=== PATIENT | male | born 1935 | race African-American/Black ===

== ENCOUNTER 2018-06-10 10:14 | Inpatient (IN) | payer MEDICARE, OTHER ==
--- NOTE | ~2018-06-10 | PN ---
PATIENT:CELESTINA CHEEMA MEDICAL RECORD: [id number] LOCATION:[facility] ADMISSION DATE: 06/10/18 PROGRESS NOTE DATE OF SERVICE: 06/26/2018 SUBJECTIVE: The patient's case was discussed with staff. He has no new complaint. OBJECTIVE: The patient does not appear over-sedated today. He is tolerating his medicines reasonably well. He has pretty limited insight. ASSESSMENT: No change in diagnoses. PLAN: The patient will be transitioned out of the hospital soon if this level of improvement is maintained. His long-term prognosis is guarded. TRANSINT:[id number] Voice Confirmation ID: [id number] DOCUMENT ID: [id number] JORJE SOTOMAYOR MD at 1053 CC: [id number] DICTATION DATE: 06/26/18 1448 ELECTROCARDIOGRAPH TECHNICIAN: 06/26/18 1519 ADM IN [facility] [address] [id number]
--- NOTE | ~2018-06-10 | PN ---
PATIENT:CELESTINA CHEEMA MEDICAL RECORD: [id number] LOCATION:[facility]113 ADMISSION DATE: 06/10/18 PROGRESS NOTE DATE OF SERVICE: 06/25/2018 SUBJECTIVE: The patient's case was discussed with staff. He has no new complaint. OBJECTIVE: The patient is in good behavioral control with limited insight about his condition. He does tolerate his medicines well. He was agitated about 4 o'clock this morning and received p.r.n. medication. I do not think he has had enough doses of the Abilify to determine if he is going to tolerate that well or not. He continues to intermittently be extremely abusive and verbally aggressive toward others. TRANSINT:[id number] Voice Confirmation ID: [id number] DOCUMENT ID: [id number] JORJE SOTOMAYOR MD at 1301 CC: [id number] DICTATION DATE: 06/25/18 1503 LABORER COOK HOUSE: 06/25/18 1520 ADM IN [id number] [place] [address]
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
--- NOTE | ~2018-06-10 | PN ---
PATIENT:CELESTINA CHEEMA MEDICAL RECORD: [id number] LOCATION:[facility]awaSivakumar112 ADMISSION DATE: 06/10/18 PROGRESS NOTE DATE OF SERVICE: 06/12/2018 SUBJECTIVE: The patient's case was discussed with staff. He has no new complaint. OBJECTIVE: The patient is paranoid and withdrawn. He is very isolative. When asked about paranoia, he denies it, but he has been observed by myself and other staff members and is indeed quite psychotic. He has not been openly aggressive. ASSESSMENT: No change in diagnoses. PLAN: The patient was just started yesterday on Zyprexa at a dose of 5 mg at bedtime. I am virtually certain he is going to need a higher dose, but I will wait another day before I increase it. His long-term prognosis is guarded. TRANSINT:[id number] Voice Confirmation ID: [id number] DOCUMENT ID: [id number] JORJE SOTOMAYOR MD at 1329 CC: [id number] DICTATION DATE: 06/12/18 1331 OUTBOUND SALES PROFESSIONAL: 06/12/18 1346 ADM IN [facility] [address] [place] [address]
--- NOTE | ~2018-06-10 | PN ---
PATIENT:CELESTINA CHEEMA MEDICAL RECORD: [id number] LOCATION:[facility]113 ADMISSION DATE: 06/10/18 PROGRESS NOTE DATE OF SERVICE: 06/27/2018 SUBJECTIVE: The patient's case was discussed with staff. He has no new complaint. OBJECTIVE: The patient is awake, alert and not angry or verbally abusive. He did sleep well last night and he ate reasonably well. He does have a therapeutic Depakote level. I consider him to have significantly improved. ASSESSMENT: No change in diagnoses. PLAN: The patient will be transitioned back to the senior care tomorrow. His long-term prognosis is guarded. TRANSINT:[id number] Voice Confirmation ID: [id number] DOCUMENT ID: [id number] JORJE SOTOMAYOR MD at 1322 CC: [id number] DICTATION DATE: 06/27/18 1212 WHARF TALLY CLERK: 06/27/18 1224 DIS IN 06/28/18 [id number] [place] [address]
--- NOTE | ~2018-06-10 | PN ---
PATIENT:CELESTINA CHEEMA MEDICAL RECORD: [id number] LOCATION:[facility] BajwaSivakumar113 ADMISSION DATE: 06/10/18 PROGRESS NOTE DATE OF SERVICE: 06/24/2018 SUBJECTIVE: The patient's case was discussed with staff. He has no new complaint. OBJECTIVE: The patient is in good behavioral control with limited insight about his condition. He does tolerate his medicines well. He has been less irritable, although last night, he did require p.r.n. medication for verbally abusive agitation. PLAN: He will be monitored for clinical changes. His long-term prognosis is guarded. TRANSINT:[id number] Voice Confirmation ID: [id number] DOCUMENT ID: [id number] JROJE SOTOMAYOR MD at 1434 CC: [id number] DICTATION DATE: 06/24/18 1551 BIOMEDICAL EQUIPMENT SUPPORT SPECIALIST: 06/24/18 1638 ADM IN [address] [address] [place] [id number]
--- NOTE | ~2018-06-10 | PN ---
PATIENT:CELESTINA CHEEMA MEDICAL RECORD: [id number] LOCATION:[facility] Arthur ADMISSION DATE: 06/10/18 PROGRESS NOTE DATE OF SERVICE: 06/23/2018 SUBJECTIVE: The patient's case was discussed with staff. He has no new complaint. OBJECTIVE: The patient denies intent to harm himself or others. He is very irritable and inappropriate. He is using numerous racial slurs toward other patients and staff. ASSESSMENT: No change in diagnoses. The patient is much more awake. His demeanor is certainly inappropriate. I think it is related to dementia and I am going to treat him with a low dose of Abilify. He will be monitored for clinical changes associated with the medication. His long-term prognosis is guarded. TRANSINT:[id number] Voice Confirmation ID: [id number] DOCUMENT ID: [id number] JORJE SOTOMAYOR MD at 1459 CC: [id number] DICTATION DATE: 06/23/18 1138 ORTHOTICS ASSISTANT: 06/23/18 1619 ADM IN [facility] [address] [place] [address]
--- NOTE | ~2018-06-10 | PN ---
PATIENT:CELESTINA CHEEMA MEDICAL RECORD: [id number] LOCATION:[facility] GonzalezSona ADMISSION DATE: 06/10/18 PROGRESS NOTE DATE OF SERVICE: 06/20/2018 SUBJECTIVE: The patient's case was discussed with staff. He has no new complaint. OBJECTIVE: The patient is in good behavioral control, but earlier today was very angry and cursing at staff and using racial slurs. When asked about this, he becomes angry. ASSESSMENT: No change in diagnoses. PLAN: Supportive and educational interventions were made. Long-term prognosis is guarded. I am going to start him on Seroquel at a dose of 25 mg twice daily for his thought disorganization. TRANSINT:[id number] Voice Confirmation ID: [id number] DOCUMENT ID: [id number] JORJE SOTOMAYOR MD at 1350 CC: [id number] DICTATION DATE: 06/20/18 1338 GAS ENGINE OPERATOR: 06/20/18 1348 ADM IN [address] [place] [address]
--- NOTE | ~2018-06-10 | PN ---
PATIENT:CELESTINA CHEEMA MEDICAL RECORD: [id number] LOCATION:PIP[facility]112 ADMISSION DATE: 06/10/18 PROGRESS NOTE DATE OF SERVICE: 06/19/2018 SUBJECTIVE: The patient's case was discussed with staff. He has no new complaint. OBJECTIVE: The patient is in good behavioral control with limited insight about his condition. He does tolerate his medicines well. ASSESSMENT: No change in diagnoses. PLAN: Current medicines and therapies have been reviewed, both will be maintained. Long-term prognosis is guarded. I anticipate the patient can be transitioned out of the hospital soon if this level of improvement is maintained. TRANSINT:[id number] Voice Confirmation ID: [id number] DOCUMENT ID: [id number] JORJE SOTOMAYOR MD at 1323 CC: [id number] DICTATION DATE: 06/19/18 1215 OPERATING COST CLERK: 06/19/18 1238 ADM IN [facility] [address] [place] [address]
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
--- NOTE | ~2018-06-10 | PN ---
PATIENT:CELESTINA CHEEMA MEDICAL RECORD: [id number] LOCATION:[facility] BajwaSiv[facility]umar112 ADMISSION DATE: 06/10/18 PROGRESS NOTE DATE OF SERVICE: 06/17/2018 SUBJECTIVE: The patient's case was discussed with staff. He has no new complaint. OBJECTIVE: The patient is in better behavioral control. He, at least today, has not used any of the racial slurs toward the staff. ASSESSMENT: No change in diagnoses. PLAN: The patient will have his Namenda increased to 5 mg twice daily. His long-term prognosis is guarded. I do anticipate he can be returned to the group home soon if this level of improvement is maintained. TRANSINT:[id number] Voice Confirmation ID: [id number] DOCUMENT ID: [id number] JORJE SOTOMAYOR MD at 1406 CC: [id number] DICTATION DATE: 06/17/18 1413 NET APPLICATIONS DEVELOPER: 06/17/18 1530 ADM IN [id number] [place] [address]
--- NOTE | ~2018-06-10 | PN ---
PATIENT:CELESTINA CHEEMA MEDICAL RECORD: [id number] LOCATION:AydeeSivakumarJUWAN [facility]112 ADMISSION DATE: 06/10/18 PROGRESS NOTE DATE OF SERVICE: 06/16/2018 SUBJECTIVE: The patient's case was discussed with staff. He has no new complaint. OBJECTIVE: The patient denies intent to harm himself or others. He generally tolerates his medicines well. ASSESSMENT: No change in diagnoses. PLAN: The patient has been somewhat verbally abusive to the staff, but he has not made overt threats to harm anyone. The level of abuse though is such that I do not think he could be managed in a long-term care setting since the vulgar and racial terms he is using are not likely to be tolerated outside of a behavioral unit. I have spoken with him about this and he denies that he has been doing it. I will maintain current medications and we will monitor his progress. TRANSINT:[id number] Voice Confirmation ID: [id number] DOCUMENT ID: [id number] JORJE SOTOMAYOR MD at 1333 CC: [id number] DICTATION DATE: 06/16/18 1114 TACK CUTTER: 06/16/[address] [facility] [address] [id number]
--- NOTE | ~2018-06-10 | PN ---
PATIENT:CELESTINA CHEEMA MEDICAL RECORD: [id number] LOCATION:[facility] Gonzalez112 ADMISSION DATE: 06/10/18 PROGRESS NOTE DATE OF SERVICE: 06/22/2018 SUBJECTIVE: The patient's case was discussed with staff. He has no new complaint. OBJECTIVE: The patient denies intent to harm himself or others. He generally tolerates his medicines well. He is still a little sedated, but much better than yesterday. The amount of Seroquel he received was modest, yet it had a very powerful effect upon him. Hopefully, I can avoid another antipsychotic; however, if he becomes delusional, agitated, and abusive, it may well be necessary to start another medication. TRANSINT:[id number] Voice Confirmation ID: [id number] DOCUMENT ID: [id number] JORJE SOTOMAYOR MD at 1118 CC: [id number] DICTATION DATE: 06/22/18 1147 PHOTONICS ENGINEERING TECHNICIAN: 06/22/18 1341 ADM IN [id number] [place] [address]
--- NOTE | ~2018-06-10 | PN ---
PATIENT:CELESTINA CHEEMA MEDICAL RECORD: [id number] LOCATION:[facility] Hart ADMISSION DATE: 06/10/18 PROGRESS NOTE DATE OF SERVICE: 06/15/2018 SUBJECTIVE: The patient's case was discussed with staff. He has no new complaint. OBJECTIVE: The patient is eating reasonably well and he is sleeping reasonably well. He has not been aggressive, but he continues to be fairly irritable and unpleasant. I suspect the improvement in his aggression is related to the skill with which trained psychiatric nurses are interacting with him and not related to some improvement in his underlying condition. He, on the other hand, does seem less paranoid and hypervigilant, which is somewhat curious since he is not receiving an antipsychotic at this time. Another curiosity is how his Depakote level could go from therapeutic to subtherapeutic when his dose of medication was not changed. I am suspicious that if there is paranoia, he may be cheeking his medications or at least some of them. I will speak with him about this and ask the nursing staff to be more vigilant and observing him swallow and clear his mouth when he takes medication. They generally do that already, but at this point, I do not have an explanation as to why his Depakote level would be so different just a few days apart. ASSESSMENT: No change in diagnoses. PLAN: As described above, the patient will be monitored and observed. TRANSINT:[id number] Voice Confirmation ID: [id number] DOCUMENT ID: [id number] JORJE SOTOMAYOR MD at 1040 CC: [id number] DICTATION DATE: 06/15/18 1036 SOAP PRESS FEEDER: 06/15/18 1101 ADM IN [facility] [address] [place] [address]
--- NOTE | ~2018-06-10 | PN ---
PATIENT:CELESTINA CHEEMA MEDICAL RECORD: [id number] LOCATION:LisaJUWAN Gonzalez112 ADMISSION DATE: 06/10/18 PROGRESS NOTE DATE OF SERVICE: 06/18/2018 SUBJECTIVE: The patient's case was discussed with staff. He has no new complaint. OBJECTIVE: The patient is in poor behavioral control. He has very limited insight about his condition. He tolerates his medicines well. He is not sleeping very well, but he does tend to catnap through the day. ASSESSMENT: No change in diagnoses. PLAN: I have ordered a Depakote level for the patient and we will maintain current medicines, which I have reviewed. If this level of improvement is maintained, I anticipate he can be discharged soon. TRANSINT:[id number] Voice Confirmation ID: [id number] DOCUMENT ID: [id number] JORJE SOTOMAYOR MD at 1203 CC: [id number] DICTATION DATE: 06/18/18 1452 TECHNICAL AID: 06/18/18 1559 ADM IN [id number] [place] [address]
--- NOTE | ~2018-06-10 | PN ---
PATIENT:CELESTINA CHEEMA MEDICAL RECORD: [id number] LOCATION:[facility] Gonzalez112 ADMISSION DATE: 06/10/18 PROGRESS NOTE DATE OF SERVICE: 06/14/2018 SUBJECTIVE: The patient's case was discussed with staff. He has no new complaint. OBJECTIVE: The patient is sleepy but arousable. He is confused to begin with, but it is probably a little worse this afternoon because he seems sleepy. He only received Zyprexa at a dose of 5 mg at bedtime, so I am not sure if that is the problem. He is also taking Depakote, which had a therapeutic blood level a few days ago. ASSESSMENT: No change in diagnoses. PLAN: The patient looks sleepy as mentioned above, so I am going to stop the Zyprexa. It is the newest medication that has been started and I am going to check a Depakote level. His long-term prognosis is guarded. He will be reevaluated tomorrow. TRANSINT:[id number] Voice Confirmation ID: [id number] DOCUMENT ID: [id number] JORJE SOTOMAYOR MD at 1014 CC: [id number] DICTATION DATE: 06/14/18 1728 LIBRARY CONSULTANT: 06/14/18 1803 ADM IN [address] [place] [address]
--- NOTE | ~2018-06-10 | PN ---
PATIENT:CELESTINA CHEEMA MEDICAL RECORD: [id number] LOCATION:[facility] BajwaSivakumar112 ADMISSION DATE: 06/10/18 PROGRESS NOTE DATE OF SERVICE: 06/21/2018 SUBJECTIVE: The patient's case was discussed with staff. He has no new complaint. OBJECTIVE: The patient denies intent to harm himself or others, but is very sleepy and is having difficulty maintaining arousal. ASSESSMENT: No change in diagnoses. PLAN: The patient is very sleepy compared to yesterday. It must be the Seroquel that he has been started on. I am going to discontinue it. I am also going to check a Depakote level, which has been therapeutic, but just to make sure it has not for some mysterious reason climbed into the toxic range. TRANSINT:[id number] Voice Confirmation ID: [id number] DOCUMENT ID: [id number] JORJE SOTOMAYOR MD at 1129 CC: [id number] DICTATION DATE: 06/21/18 1417 MANAGER MOBILE: 06/21/18 1424 ADM IN [id number] [place] [id number]
--- NOTE | ~2018-06-10 | PN ---
PATIENT:CELESTINA CHEEMA MEDICAL RECORD: [id number] LOCATION:T[facility] Gonzalez112 ADMISSION DATE: 06/10/18 PROGRESS NOTE DATE OF SERVICE: 06/13/2018 SUBJECTIVE: The patient's case was discussed with staff. He has no new complaint. OBJECTIVE: The patient is in good behavioral control with limited insight about his condition. He appears to be paranoid and hypervigilant. He has not been yelling anymore, which is certainly encouraging. He certainly is sleeping an adequate amount. ASSESSMENT: No change in diagnoses. PLAN: The patient will have his trazodone discontinued secondary to an absence of clinical indication. He also will be started on Namenda for its memory enhancing properties. I am encouraged by the improvement, but still do not think he is appropriate for management in a [facility] based on his level of psychosis and paranoia. TRANSINT:[id number] Voice Confirmation ID: [id number] DOCUMENT ID: [id number] JORJE SOTOMAYOR MD at 1710 CC: [id number] DICTATION DATE: 06/13/18 1403 CONTROL CABINET ASSEMBLER: 06/13/18 1408 ADM IN [facility] [address] [place] [address]
[2018-06-10] MEDS ORDERED: ATIVAN0.5 MG (10:34)
[2018-06-10] MEDS ORDERED: NORVASC2.5 MG PO (10:34)
[2018-06-10] MEDS ORDERED: BENZTROPINE ME0.5 MG PO (10:35)
[2018-06-10] MEDS ORDERED: DEPAKOTE SPRIN125 MG PO (10:35)
[2018-06-10] MEDS ORDERED: EUCERIN CREAM120 GM TOPICAL (10:35)
[2018-06-10] MEDS ORDERED: CHRONULAC30 ML PO (10:40)
[2018-06-10] MEDS ORDERED: FUROSEMIDE20 MG PO (10:40)
[2018-06-10] MEDS ORDERED: INVEGA6 MG/BLIST PO (10:40)
[2018-06-10] MEDS ORDERED: LISINOPRIL2.5 MG PO (10:41)
[2018-06-10] MEDS ORDERED: TOPROL XL25 MG PO (10:41)
[2018-06-10 12:01] LABS: BASOPHILS 0.2 % (0-2); EOSINOPHILS 3.3 % (0-7); HEMATOCRIT 34.6 % (42.0-54.0); HEMOGLOBIN 11.3 g/dL (13.5-17.5); IMMATURE GRANULOCYTES 0.4 % (0-5); LYMPHOCYTES 27.3 % (15-50); MCH 26.8 pg (26.0-34.0); MCHC 32.7 g/dL (31.0-37.0); MCV 82.2 fL (80.0-100.0); MEAN PLATELET VOLUME 10.2 fL (7.4-10.4); NEUTROPHILS 55.8 % (40-80); PLATELET COUNT 180 10x3/uL (130-400); RBC 4.21 10x6/uL (4.20-6.10); RDW 15.7 % (11.5-14.5); WBC 4.8 10x3/uL (4.8-10.8)
[2018-06-10 12:48] LABS: ALKALINE PHOSPHATASE 68 U/L (46-116); ALT (SGPT) 21 U/L (10-68); BILIRUBIN - TOTAL 0.27 mg/dL (0.2-1.3); CALC OSMOLALITY 275 mosm/kg (275-300); CALCIUM 8.4 mg/dL (8.5-10.1); CARBON DIOXIDE 28.1 mmol/L (21.0-32.0); CHLORIDE - SERUM 100 mmol/L (98-107); CREATININE - SERUM 0.9 mg/dL (0.6-1.3); GLUCOSE 82 mg/dL (74-106); POTASSIUM - SERUM 4.2 mmol/L (3.5-5.1); PROTEIN - SERUM 7.2 g/dL (6.4-8.2); SODIUM 138 mmol/L (136-145); UREA NITROGEN 14 mg/dL (7-18); eGFR NON AFRICAN AMERICAN 86 mL/min (90-120)
[2018-06-10 19:07] LABS: APPEARANCE CLEAR (CLEAR); BILIRUBIN NEGATIVE (NEGATIVE); COLOR YELLOW (YELLOW); GLUCOSE NEGATIVE (NEGATIVE); KETONE NEGATIVE (NEGATIVE); NITRITE NEGATIVE (NEGATIVE); PROTEIN NEGATIVE (NEGATIVE); UROBILINOGEN NORMAL (NORMAL)
[2018-06-10 19:36] VITALS: BP 136/59
[2018-06-10] MEDS ORDERED: K-DUR20 MEQ PO (19:41)
[2018-06-10] MEDS ORDERED: ACETAMINOPHEN500 M1 PO (19:42)
[2018-06-10] MEDS ORDERED: TRAZODONE HCL50 MG PO (19:42)
[2018-06-11 07:00] VITALS: BP 137/80
[2018-06-11 08:08] LABS: CHOL - HDL RATIO 2.1 ratio (2.3-4.9); THYROID STIMULATING HORMONE 3.53 uIU/mL (0.36-3.74); VALPROIC ACID (DEPAKOTE) 58.7 ug/mL (50.0-100.0)
[2018-06-11 11:25] VITALS: BMI 20.4
[2018-06-11 13:47] VITALS: Wt 68.0 kg
[2018-06-11 19:41] VITALS: BP 117/76
[2018-06-12 01:08] LABS: UDS - AMPHET NEGATIVE QUAL (NEGATIVE); UDS - BARB NEGATIVE QUAL (NEGATIVE); UDS - BENZO NEGATIVE QUAL (NEGATIVE); UDS - COCAINE NEGATIVE QUAL (NEGATIVE); UDS - OPIATE NEGATIVE QUAL (NEGATIVE); UDS - PCP NEGATIVE QUAL (NEGATIVE); UDS - THC NEGATIVE QUAL (NEGATIVE)
[2018-06-12 07:32] LABS: RAPID PLASMA REAGIN Non Reactive (Non Reactive)
[2018-06-12 09:22] LABS: FOLATE (FOLIC ACID) - SERUM 11.1 ng/mL (>3.0)
[2018-06-12 10:20] LABS: VITAMIN D 25 HYDROXY 27.8 ng/mL (30.0-100.0)
[2018-06-12 10:22] VITALS: BP 112/74
[2018-06-12 20:15] VITALS: BP 124/67
[2018-06-13 09:00] VITALS: BP 132/78
[2018-06-13 19:23] VITALS: BP 112/74
[2018-06-14 09:14] VITALS: BP 147/77
[2018-06-14 20:28] VITALS: BP 133/68
[2018-06-15 07:58] VITALS: BP 110/58
[2018-06-15 10:12] VITALS: BP 110/58
[2018-06-15 14:51] LABS: ALBUMIN 2.9 g/dL (3.4-5.0); ALKALINE PHOSPHATASE 70 U/L (46-116); ALT (SGPT) 21 U/L (10-68); CALC OSMOLALITY 280 mosm/kg (275-300); CALCIUM 8.3 mg/dL (8.5-10.1); CARBON DIOXIDE 31.1 mmol/L (21.0-32.0); CHLORIDE - SERUM 103 mmol/L (98-107); CREATININE - SERUM 0.9 mg/dL (0.6-1.3); GLUCOSE 110 mg/dL (74-106); POTASSIUM - SERUM 3.9 mmol/L (3.5-5.1); PROTEIN - SERUM 7.6 g/dL (6.4-8.2); SODIUM 140 mmol/L (136-145); UREA NITROGEN 14 mg/dL (7-18); eGFR NON AFRICAN AMERICAN 86 mL/min (90-120)
[2018-06-15 14:55] LABS: BASOPHILS 0.2 % (0-2); EOSINOPHILS 3.6 % (0-7); HEMATOCRIT 35.8 % (42.0-54.0); HEMOGLOBIN 11.7 g/dL (13.5-17.5); IMMATURE GRANULOCYTES 0.3 % (0-5); LYMPHOCYTES 18.9 % (15-50); MCHC 32.7 g/dL (31.0-37.0); MCV 82.5 fL (80.0-100.0); MEAN PLATELET VOLUME 9.5 fL (7.4-10.4); MONOCYTES 18.6 % (2-11); NEUTROPHILS 58.4 % (40-80); PLATELET COUNT 170 10x3/uL (130-400); RBC 4.34 10x6/uL (4.20-6.10); RDW 15.8 % (11.5-14.5); WBC 5.9 10x3/uL (4.8-10.8)
[2018-06-15 20:39] VITALS: BP 124/61
[2018-06-16 07:00] VITALS: BP 148/61
[2018-06-16 20:05] VITALS: BP 122/68
[2018-06-17 07:00] VITALS: BP 136/75
[2018-06-17 19:25] VITALS: BP 94/50
[2018-06-18 08:49] VITALS: BP 120/67
[2018-06-18 21:22] VITALS: BP 109/65
[2018-06-19 08:05] VITALS: BP 171/74
[2018-06-19 20:55] VITALS: BP 172/83
[2018-06-20 10:40] LABS: CALC OSMOLALITY 275 mosm/kg (275-300); CALCIUM 8.7 mg/dL (8.5-10.1); CARBON DIOXIDE 26.7 mmol/L (21.0-32.0); CHLORIDE - SERUM 103 mmol/L (98-107); CREATININE - SERUM 0.9 mg/dL (0.6-1.3); GLUCOSE 139 mg/dL (74-106); SODIUM 136 mmol/L (136-145); UREA NITROGEN 19 mg/dL (7-18); eGFR NON AFRICAN AMERICAN 86 mL/min (90-120)
[2018-06-20 11:03] VITALS: BP 160/121
[2018-06-20 20:05] VITALS: BP 100/56
[2018-06-21 10:31] VITALS: BP 137/78
[2018-06-21 20:35] VITALS: BP 105/68
[2018-06-22 09:37] VITALS: BP 116/72
[2018-06-22 19:21] VITALS: BP 109/64
[2018-06-23 08:00] VITALS: BP 143/62
[2018-06-23 19:25] VITALS: BP 104/63
[2018-06-24 09:47] VITALS: BP 123/68
[2018-06-24 19:34] VITALS: BP 99/55
[2018-06-25 08:00] VITALS: BP 126/53
[2018-06-25 22:24] VITALS: BP 113/60
[2018-06-26 09:00] VITALS: BP 133/66
[2018-06-26 19:06] VITALS: BP 101/60
[2018-06-27 10:35] VITALS: BP 134/63
[2018-06-27 22:38] VITALS: BP 150/74
[2018-06-28] MEDS ORDERED: NAMENDA5 MG PO (09:29)
[2018-06-28] MEDS ORDERED: VOLTAREN100 GM TOPICAL (09:30)
[2018-06-28] MEDS ORDERED: ACETAMINOPHEN500 M1 PO (09:30)
[2018-06-28] MEDS ORDERED: ABILIFY2 MG PO (09:31)
[2018-06-28] MEDS ORDERED: LASIX20 MG PO (09:31)
[2018-06-28] MEDS ORDERED: LINZESS145 MCG PO (09:31)
[2018-06-28] MEDS ORDERED: VITAMIN D31000 UNI2 PO (09:32)
[2018-07-03] MEDS ORDERED: VIBRAMYCIN 100100 MG PO (18:07)
== END 2018-06-28 11:12 | DRG 885 ==
LOC: D.ER 10:14 → D.PSYCH 16:36 → D.EDHOLD 16:36 → D.PSYCH 17:20
PROVIDERS: Family Medicine; Psychiatry & Neurology Psychiatry
DX: F20.0 Paranoid schizophrenia (principal); B20 Human immunodeficiency virus [HIV] disease; L03.221 Cellulitis of neck; G30.1 Alzheimer's disease with late onset; F02.80 Dementia in other diseases classified elsewhere, unspecified severity, without behavioral disturbance, psychotic disturbance, mood disturbance, and anxiety; E55.9 Vitamin D deficiency, unspecified; I10 Essential (primary) hypertension; K59.09 Other constipation; J30.9 Allergic rhinitis, unspecified; S43.001A Unspecified subluxation of right shoulder joint, initial encounter; X58.XXXA Exposure to other specified factors, initial encounter

== ENCOUNTER 2018-07-04 11:10 | Inpatient (IN) | payer MEDICARE ==
[~2018-07-04] VITALS: Ht 180.3 cm; Wt 69.6 kg
--- NOTE | ~2018-07-04 | PSY ---
PATIENT NAME:CELESTINA CHEEMA MEDICAL RECORD: [id number] : 39 LOCATION:[facility]4 ADMISSION DATE: 07/04/18 ACCOUNT: [id number] PSYCHIATRIC EVALUATION DATE OF EVALUATION: 07/05/18 IDENTIFYING DATA: The patient is 83 years old and he is admitted to the hospital on a voluntary basis. CHIEF COMPLAINT: Aggression. HISTORY OF PRESENT ILLNESS: The patient lives in a local [facility] and he has been aggressive, threatening and abusive to the staff and other patients. The patient has no recollection of this. He was actually discharged from here about a week ago and at that time after a difficult hospitalization, he was stable. He was discharged on a Sunday and even though there were discharge instructions, the usp called on Sunday and wanted to know what medicines he was supposed to be on. This leads me to believe that he had not had medications for several days or at least not had all of his medicines for several days. The patient has no recollection of the events that transpired. He is angry, he is verbally abusive, and makes some very inappropriate statements. PAST MEDICAL HISTORY: Significant for an HIV infection, which has been present for some time. He also has a history of hypertension. He denies being a homosexual and using intravenous drugs, so I am not sure how he contracted the disease. PAST PSYCHIATRIC HISTORY: Significant for a longstanding diagnosis of schizophrenia. The patient was actually discharged from the [employer] for mental health reasons and has had numerous psychiatric hospitalizations since then. FAMILY HISTORY: Unknown. ALLERGIES: SULFA and IODINE. CURRENT MEDICATIONS: Please see the admissions MAR. SOCIAL HISTORY: The patient is single. He has never been and has no children. He has never functioned well socially or occupationally. He has been mentally ill all of his adult life. He denies a history of drug or alcohol abuse as well as legal entanglements, but again he is an unreliable historian. He has a sister who lives in [place] and she is actually the one who brought him here from [place], so that she could care for him, but after she was unable to manage him in her home, she placed him in a usp. MENTAL STATUS EXAMINATION: The patient is awake, alert and oriented to person, place and somewhat to time and situation. His mood is flat. His affect is generally appropriate. Thought processes are disorganized with impairment of his memory, concentration, and abstraction abilities. He denies that he would seek to harm himself or others. He denies psychotic symptoms. ASSETS: Supportive family members. LIABILITIES: Limited insight. DIAGNOSTIC IMPRESSION: AXIS I: 1. 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 AXIS II: Deferred. AXIS III: HIV infection and hypertension. AXIS IV: Moderate stressors. AXIS V: Global assessment of functioning is 30. PLAN: At this time, the patient is admitted to the hospital for a comprehensive medical, psychological, and social evaluation. He will be treated with both mood stabilizing and memory enhancing medications. His long-term prognosis is guarded. TRANSINT:[id number] Voice Confirmation ID: [id number] DOCUMENT ID: [id number] JORJE SOTOMAYOR MD at 1243 CC: [id number] DICTATION DATE: 07/05/18 1251 SECURITY SHIFT SUPERVISOR: 07/05/18 1301 [facility] IN [facility] [address] [id number]
--- NOTE | ~2018-07-04 | PN ---
PATIENT:CELESTINA CHEEMA MEDICAL RECORD: [id number] LOCATION:[facility]112 ADMISSION DATE: 07/04/18 PROGRESS NOTE DATE OF SERVICE: 07/08/2018 SUBJECTIVE: The patient's case was discussed with staff. He has no new complaint. OBJECTIVE: The patient denies intent to harm himself or others. He does appear to be a little sedated. He has not had p.r.n. medication today. We had no further disruptive behaviors. I am going to check a Depakote level to make sure that the dose has not gradually risen on him, but if that is in therapeutic range, I think there is probably not very much more that can be done with him other than helping with placing him in an environment that meets his needs, but is the least restrictive possible. TRANSINT:[id number] Voice Confirmation ID: [id number] DOCUMENT ID: [id number] JORJE SOTOMAYOR MD at 1329 CC: [id number] DICTATION DATE: 07/08/18 1436 FIRST AID ATTENDANT: 07/08/18 1441 ADM IN [facility] [address] [place] [address]
--- NOTE | ~2018-07-04 | PN ---
PATIENT:CELESTINA CHEEMA MEDICAL RECORD: [id number] LOCATION:[facility]112 ADMISSION DATE: 07/04/18 PROGRESS NOTE DATE OF SERVICE: 07/09/2018 SUBJECTIVE: The patient's case was discussed with staff. He has no new complaint. OBJECTIVE: The patient is somewhat sedated. He is arousable and reasonably cooperative. ASSESSMENT: No change in diagnoses. PLAN: The patient received p.r.n. medication last night for some agitation. This was unfortunate of course, but I think that a possible solution or partial solution has been found. It seems that the patient is often refusing medications or intermittently refusing them, but he will consistently take them if they are crushed and put in chocolate pudding. I have asked the nursing staff to do this with all of his medications and this practice should be followed at the [facility] upon discharge. TRANSINT:[id number] Voice Confirmation ID: [id number] DOCUMENT ID: [id number] JORJE SOTOMAYOR MD at 1234 CC: [id number] DICTATION DATE: 07/09/181908 SAP PROJECT MANAGER: 07/09/181941 ADM IN [facility] [address] [place] [address]
--- NOTE | ~2018-07-04 | PN ---
PATIENT:CELESTINA CHEEMA MEDICAL RECORD: [id number] LOCATION:[facility]ona ADMISSION DATE: 07/04/18 PROGRESS NOTE DATE OF SERVICE: 07/11/2018 SUBJECTIVE: The patient's case was discussed with staff. He has no new complaint. OBJECTIVE: The patient is in good behavioral control with limited insight about his condition. He does tolerate his medicines well. Unfortunately, he was agitated yesterday. He is calmer today. I do not know if this was an isolated event, it was once again racially motivated. ASSESSMENT: No change in diagnoses. PLAN: I do intend to treat the patient with current medicines. I will check a Depakote level. He does have a history of being very sensitive to medications. TRANSINT:[id number] Voice Confirmation ID: [id number] DOCUMENT ID: [id number] JORJE SOTOMAYOR MD at 1435 CC: [id number] DICTATION DATE: 07/11/18 1359 SHOESHINER: 07/11/18 1412 ADM IN [place] [id number] [place] [id number]
--- NOTE | ~2018-07-04 | PN ---
PATIENT:CELESTINA CHEEMA MEDICAL RECORD: [id number] LOCATION:[facility]112 ADMISSION DATE: 07/04/18 PROGRESS NOTE DATE OF SERVICE: 07/13/2018 SUBJECTIVE: The patient's case was discussed with staff. He has no new complaint. OBJECTIVE: The patient is in good behavioral control with limited insight about his condition. He does tolerate his medicines well. Eye contact is fair. ASSESSMENT: No change in diagnoses. PLAN: The patient has been very angry, but not today. I have reviewed his medicines and I am going to ask for a Depakote level. He looks sleepy, but was easily aroused. I am told he has been more awake through the day by the staff that spends the day with him in the day room. His next of kin who happens to be a sister does not want him transferred to a more restrictive area or senior living, which is of course fine, but it may be a real challenge to bring his behaviors under control such that he can be handled in a senior living here in [place]. TRANSINT:[id number] Voice Confirmation ID: [id number] DOCUMENT ID: [id number] JORJE SOTOMAYOR MD at 1210 CC: [id number] DICTATION DATE: 07/13/18 1236 MOTEL OPERATOR: 07/13/18 1253 ADM IN [address] [id number] [place] [address]
--- NOTE | ~2018-07-04 | PN ---
PATIENT:CELESTINA CHEEMA MEDICAL RECORD: [id number] LOCATION:[facility]112 ADMISSION DATE: 07/04/18 PROGRESS NOTE DATE OF SERVICE: 07/12/2018 SUBJECTIVE: The patient's case was discussed with staff. He has no new complaint. OBJECTIVE: The patient denies intent to harm himself or others. He is slightly sedated, but nursing staff in the day room with him at this time indicate that he has been awake and active through the morning, so I may have just caught him at a bad time. He has pretty limited insight about his condition. He is actually polite when he speaks to me. I am going to go ahead and check another Depakote level. He had a nicely therapeutic level 4 days ago, but I want to see if is stable. TRANSINT:[id number] Voice Confirmation ID: [id number] DOCUMENT ID: [id number] JORJE SOTOMAYOR MD at 1213 CC: [id number] DICTATION DATE: 07/12/18 1505 STABILIZING MACHINE OPERATOR: 07/12/18 1514 ADM IN [facility] [address] [place] [address]
--- NOTE | ~2018-07-04 | PN ---
PATIENT:CELESTINA CHEEMA MEDICAL RECORD: [id number] LOCATION:[facility]112 ADMISSION DATE: 07/04/18 PROGRESS NOTE DATE OF SERVICE: 07/06/2018 SUBJECTIVE: The patient's case was discussed with staff. He has no new complaint. OBJECTIVE: The patient seems a little sleepy, but I am not sure if that is related to some p.r.n. medicine he had a couple of days ago or his scheduled medicines. I think it is probably the p.r.n.'s that are causing a lingering sedation because when he was previously discharged from here he was taking the same medications and was tolerating them well. ASSESSMENT: No change in diagnoses. PLAN: The patient has not been aggressive today. He has some paranoid thoughts, but they are mild compared to what I have seen with him previously. I think his long-term prognosis is guarded. TRANSINT:[id number] Voice Confirmation ID: [id number] DOCUMENT ID: [id number] JORJE SOTOMAYOR MD at 1326 CC: [id number] DICTATION DATE: 07/06/18 1302 WOODWORKER HELPER: 07/06/18 1340 ADM IN [place] [id number] [place] [address]
--- NOTE | ~2018-07-04 | PN ---
PATIENT:CELESTINA CHEEMA MEDICAL RECORD: [id number] LOCATION:[facility]112 ADMISSION DATE: 07/04/18 PROGRESS NOTE DATE OF SERVICE: 07/15/2018 SUBJECTIVE: The patient's case was discussed with staff. He has no new complaint. OBJECTIVE: The patient is in good behavioral control, although he can still be irritable at times. ASSESSMENT: No change in diagnoses. PLAN: The patient is going to be transitioned out of the hospital tomorrow. His long-term prognosis is guarded. He continues to have ongoing verbal outbursts that are racial in nature. I do not think there is anything that can really be done about this. We have discussed with his sister, who is his next of kin, about sending him to a custodial in a community where perhaps they were more -Americans and he would feel more comfortable, but she would like for him to stay locally if possible. She indicated she would be fine with him just being sedated if he could stay locally, but that is obviously completely unacceptable and we will just manage him best we can and see if this improvement is going to last. TRANSINT:[id number] Voice Confirmation ID: [id number] DOCUMENT ID: [id number] JORJE SOTOMAYOR MD at 1132 CC: [id number] DICTATION DATE: 07/15/18 1425 LIME SPREADER: 07/15/18 [address] [facility] [address] [place] [address]
--- NOTE | ~2018-07-04 | PN ---
PATIENT:CELESTINA CHEEMA MEDICAL RECORD: [id number] LOCATION:[facility]112 ADMISSION DATE: 07/04/18 PROGRESS NOTE DATE OF SERVICE: 07/14/2018 SUBJECTIVE: The patient's case was discussed with staff. He has no new complaint. OBJECTIVE: The patient is in good behavioral control with very limited insight about his situation. He continues to make vulgar and angry comments that are primarily racial. I have reviewed his medicines and will maintain him on current medications. TRANSINT:[id number] Voice Confirmation ID: [id number] DOCUMENT ID: [id number] JORJE SOTOMAYOR MD at 1408 CC: [id number] DICTATION DATE: 07/14/18 1215 COUNTY JUDGE: 07/14/18 1227 ADM IN [place] [id number] [place] [address]
--- NOTE | ~2018-07-04 | PN ---
PATIENT:CELESTINA CHEEMA MEDICAL RECORD: [id number] LOCATION:[facility] Gonzaelz112 ADMISSION DATE: 07/04/18 PROGRESS NOTE DATE OF SERVICE: 07/07/2018 SUBJECTIVE: The patient's case was discussed with staff. He has no new complaint. OBJECTIVE: The patient is in good behavioral control with poor insight about his condition. He has not been aggressive today. ASSESSMENT: No change in diagnoses. PLAN: Supportive and educational interventions were made. Long-term prognosis is guarded. TRANSINT:[id number] Voice Confirmation ID: [id number] DOCUMENT ID: [id number] JORJE SOTOMAYOR MD at 1326 CC: [id number] DICTATION DATE: 07/07/18 1251 AUTOMATIC SPINNING LATHE OPERATOR: 07/07/18 1255 ADM IN [place] [id number] [place] [address]
--- NOTE | ~2018-07-04 | PN ---
PATIENT:CELESTINA CHEEMA MEDICAL RECORD: [id number] LOCATION:[facility]112 ADMISSION DATE: 07/04/18 PROGRESS NOTE DATE OF SERVICE: 07/10/2018 SUBJECTIVE: The patient's case was discussed with staff. He has no new complaint. OBJECTIVE: The patient is in good behavioral control with limited insight about his condition. ASSESSMENT: No change in diagnoses. PLAN: The patient will likely be transitioned out of the hospital soon if this level of improvement is maintained. He continues to be unpleasant, even openly rude, and makes very inappropriate racial remarks. I do plan to keep him on current medicines for today. TRANSINT:[id number] Voice Confirmation ID: [id number] DOCUMENT ID: [id number] JORJE SOTOMAYOR MD at 1336 CC: [id number] DICTATION DATE: 07/10/18 1323 SIGN PAINTER HELPER: 07/10/18 1329 ADM IN [facility] [address] [place] [address]
[~2018-07-04 11:10] MED LIST: ABILIFY2 MG PO; ACETAMINOPHEN500 M1 PO; ATIVAN0.5 MG; BENZTROPINE ME0.5 MG PO; CHRONULAC30 ML PO; DEPAKOTE SPRIN125 MG PO; EUCERIN CREAM120 GM TOPICAL; FUROSEMIDE20 MG PO; INVEGA6 MG/BLIST PO; K-DUR20 MEQ PO; LASIX20 MG PO; LINZESS145 MCG PO; LISINOPRIL2.5 MG PO; NAMENDA5 MG PO; NORVASC2.5 MG PO; TOPROL XL25 MG PO; TRAZODONE HCL50 MG PO; VIBRAMYCIN 100100 MG PO; VITAMIN D31000 UNI2 PO; VOLTAREN100 GM TOPICAL
[2018-07-04 11:35] LABS: BASOPHILS 0.3 % (0-2); EOSINOPHILS 4.2 % (0-7); HEMATOCRIT 33.2 % (42.0-54.0); HEMOGLOBIN 10.8 g/dL (13.5-17.5); IMMATURE GRANULOCYTES 0.2 % (0-5); LYMPHOCYTES 16.8 % (15-50); MCHC 32.5 g/dL (31.0-37.0); MEAN PLATELET VOLUME 9.7 fL (7.4-10.4); MONOCYTES 13.8 % (2-11); NEUTROPHILS 64.7 % (40-80); PLATELET COUNT 204 10x3/uL (130-400); RDW 15.5 % (11.5-14.5); WBC 5.8 10x3/uL (4.8-10.8)
[2018-07-04 11:48] LABS: ALBUMIN 2.7 g/dL (3.4-5.0); ALKALINE PHOSPHATASE 64 U/L (46-116); ALT (SGPT) 15 U/L (10-68); CALC OSMOLALITY 280 mosm/kg (275-300); CALCIUM 8.4 mg/dL (8.5-10.1); CARBON DIOXIDE 30.1 mmol/L (21.0-32.0); CHLORIDE - SERUM 103 mmol/L (98-107); CREATININE - SERUM 0.9 mg/dL (0.6-1.3); GLUCOSE 93 mg/dL (74-106); POTASSIUM - SERUM 3.7 mmol/L (3.5-5.1); PROTEIN - SERUM 7.2 g/dL (6.4-8.2); SODIUM 141 mmol/L (136-145); UREA NITROGEN 12 mg/dL (7-18); eGFR NON AFRICAN AMERICAN 86 mL/min (90-120)
[2018-07-04 11:57] LABS: THYROID STIMULATING HORMONE 1.89 uIU/mL (0.36-3.74)
[2018-07-04] MEDS ORDERED: ACIDOPHILUS LAC1 CAP PO (18:10)
[2018-07-04] MEDS ORDERED: CLEOCIN HCL300 MG PO (19:24)
[2018-07-04 22:29] VITALS: BP 134/67
[2018-07-05 01:15] VITALS: BP 109/67; BMI 21.5
[2018-07-05 07:10] LABS: HEMATOCRIT 30.9 % (42.0-54.0); HEMOGLOBIN 10.5 g/dL (13.5-17.5); LYMPHOCYTES 18.7 % (15-50); MCH 27.6 pg (26.0-34.0); MCV 81.1 fL (80.0-100.0); MEAN PLATELET VOLUME 9.5 fL (7.4-10.4); NEUTROPHILS 65.5 % (40-80); RBC 3.81 10x6/uL (4.20-6.10); RDW 15.2 % (11.5-14.5); WBC 4.6 10x3/uL (4.8-10.8)
[2018-07-05 07:12] LABS: PLATELET COUNT 251 10x3/uL (130-400)
[2018-07-05 07:28] LABS: ALBUMIN 2.5 g/dL (3.4-5.0); ALKALINE PHOSPHATASE 63 U/L (46-116); ALT (SGPT) 14 U/L (10-68); CALC OSMOLALITY 277 mosm/kg (275-300); CALCIUM 8.5 mg/dL (8.5-10.1); CARBON DIOXIDE 30.8 mmol/L (21.0-32.0); CHLORIDE - SERUM 104 mmol/L (98-107); CHOL - HDL RATIO 2.5 ratio (2.3-4.9); CHOLESTEROL, TOTAL 130 mg/dL (0-200); CREATININE - SERUM 0.9 mg/dL (0.6-1.3); GLUCOSE 83 mg/dL (74-106); HDL CHOLESTEROL 52 mg/dL (32-96); LDL CHOLESTEROL 71 mg/dL (0-100); LDL-HDL RATIO 1.4 ratio (1.5-3.5); PROTEIN - SERUM 6.7 g/dL (6.4-8.2); SODIUM 139 mmol/L (136-145); THYROID STIMULATING HORMONE 2.56 uIU/mL (0.36-3.74); TRIGLYCERIDE 38 mg/dL (30-200); UREA NITROGEN 14 mg/dL (7-18); eGFR NON AFRICAN AMERICAN 86 mL/min (90-120)
[2018-07-05 11:19] VITALS: BP 119/68
[2018-07-05 13:27] VITALS: BMI 21.4
[2018-07-05 20:13] VITALS: BP 109/68
[2018-07-06 06:14] LABS: RAPID PLASMA REAGIN Non Reactive (Non Reactive)
[2018-07-06 07:23] LABS: FOLATE (FOLIC ACID) - SERUM 8.8 ng/mL (>3.0)
[2018-07-06 08:00] VITALS: BP 121/67
[2018-07-06 16:08] LABS: VITAMIN D 25 HYDROXY 36.3 ng/mL (30.0-100.0)
[2018-07-06 20:23] VITALS: BP 130/72
[2018-07-07 08:00] VITALS: BP 102/54
[2018-07-07 14:17] LABS: APPEARANCE CLEAR (CLEAR); BILIRUBIN NEGATIVE (NEGATIVE); COLOR YELLOW (YELLOW); GLUCOSE NEGATIVE (NEGATIVE); KETONE NEGATIVE (NEGATIVE); NITRITE NEGATIVE (NEGATIVE); PROTEIN TRACE mg/dL (NEGATIVE); SPECIFIC GRAVITY 1.025 (1.005-1.020); UROBILINOGEN NORMAL (NORMAL)
[2018-07-07 14:19] LABS: AMORPHOUS SEDIMENT <1+ /lpf (NONE SEEN); BACTERIA FEW /hpf (NONE SEEN); EPITHELIAL CELLS 0-5 /hpf (0-5); MUCUS <1+ /lpf (NONE SEEN); RED CELLS - URINE 0-5 /hpf (0-5); WHITE CELLS - URINE OCC /hpf (0-5)
[2018-07-07 19:16] VITALS: BP 109/66
[2018-07-08 07:00] VITALS: BP 107/62
[2018-07-08 19:58] VITALS: BP 113/60
[2018-07-09 08:00] VITALS: BP 111/55
[2018-07-09 09:00] VITALS: BP 109/62
[2018-07-09 19:58] VITALS: BP 119/77
[2018-07-10 08:35] VITALS: BP 108/58
[2018-07-10 20:00] VITALS: BP 131/70
[2018-07-11 11:25] VITALS: BP 125/71
[2018-07-11 15:37] VITALS: Ht 180.3 cm; Wt 69.6 kg
[2018-07-11 19:37] VITALS: BP 107/62
[2018-07-12 09:58] VITALS: BP 124/71
[2018-07-13 00:31] VITALS: BP 93/59
[2018-07-13 08:26] VITALS: BP 102/53
[2018-07-13 20:00] VITALS: BP 108/60
[2018-07-14 09:58] VITALS: BP 117/49
[2018-07-14 20:00] VITALS: BP 128/76
[2018-07-15 08:00] VITALS: BP 116/71
[2018-07-15] MEDS ORDERED: Xylocaine-MPF 1% IM (14:30)
[2018-07-15 19:47] VITALS: BP 103/60
[2018-07-16 08:00] VITALS: BP 102/63
== END 2018-07-16 12:00 | DRG 56 ==
LOC: D.ER 11:10 → D.EDHOLD 16:27 → D.PSYCH 16:27
PROVIDERS: Family Medicine; Psychiatry & Neurology Psychiatry
DX: G30.1 Alzheimer's disease with late onset (principal); B20 Human immunodeficiency virus [HIV] disease; F20.0 Paranoid schizophrenia; F02.81 Dementia in other diseases classified elsewhere, unspecified severity, with behavioral disturbance; N39.0 Urinary tract infection, site not specified; I10 Essential (primary) hypertension; K59.00 Constipation, unspecified; F41.9 Anxiety disorder, unspecified; F32.9 Major depressive disorder, single episode, unspecified; R26.89 Other abnormalities of gait and mobility; R13.10 Dysphagia, unspecified; B96.4 Proteus (mirabilis) (morganii) as the cause of diseases classified elsewhere; G89.29 Other chronic pain; M25.519 Pain in unspecified shoulder

== ENCOUNTER 2019-01-16 08:23 | Emergency (ER) | payer MEDICARE ==
[2019-01-16 08:23] VITALS: Ht 180.3 cm
[~2019-01-16 08:23] MED LIST changes: +ACIDOPHILUS LAC1 CAP PO; +CLEOCIN HCL300 MG PO; +Xylocaine-MPF 1% IM
== END 2019-01-16 14:27 ==
LOC: D.ER 08:23
DX: I46.9 Cardiac arrest, cause unspecified (principal); I25.10 Atherosclerotic heart disease of native coronary artery without angina pectoris